=== PATIENT | male | born 1960 | race Caucasian/White ===

== ENCOUNTER 2021-01-27 19:52 | Emergency (ER) | payer OTHER ==
[~2021-01-27] VITALS: Ht 176.5 cm; Wt 91.4 kg
[2021-01-27 21:07] LABS: MICROSCOPIC NOT IND
[2021-01-27 21:12] LABS: ANION GAP 5 mmol/L (5-15); CALCIUM 8.7 mg/dL (8.5-10.1); CHLORIDE 103 mmol/L (98-107); CREATININE 0.91 mg/dL (0.7-1.3)
[2021-01-27 21:15] LABS: BASOPHILS % (AUTO) 0 % (0-1); EOSINOPHILS % (AUTO) 0 % (1-7); LYMPHOCYTES % (AUTO) 10 % (22-44); MEAN CORPUSCULAR HEMOGLOBIN 33.4 pg (27.5-34.5); MEAN CORPUSCULAR HGB CONC 34.5 g/dL (33.2-36.2); MEAN PLATELET VOLUME 8.9 fL (7.4-10.4); MONOCYTES % (AUTO) 7 % (2-9); NEUTROPHILS % (AUTO) 82 % (42-75); PLATELET COUNT 236 x10^3/uL (130-400); RED BLOOD COUNT 4.49 x10^6/uL (4.38-5.82); RED CELL DISTRIBUTION WIDTH 12.9 % (9.4-14.8)
[2021-01-27] MEDS ORDERED: DIAZEPAM 5 MG TABLET PO ONE (21:30)
[2021-01-27] MEDS ORDERED: HYDROmorphone 2 MG/ML, 1ML IM ONE (21:30)
[2021-01-27] MEDS ORDERED: KETOROLAC 30 MG/1 ML IM ONE (21:30)
[2021-01-27] MEDS ORDERED: KETOROLAC 30 MG/1 ML ONE (22:02)
[2021-01-27] MEDS ORDERED: DIAZEPAM 5 MG TABLET ONE (22:02)
[2021-01-27] MEDS ORDERED: HYDROmorphone 1 MG/ML, 1ML INJ ONE (22:03)
[2021-01-27 23:28] VITALS: BP 141/81
== END 2021-01-27 23:29 | disposition home or self-care (01) ==
LOC: ED 22:06
DX: S39.012A Strain of muscle, fascia and tendon of lower back, initial encounter (principal); E10.65 Type 1 diabetes mellitus with hyperglycemia; I25.10 Atherosclerotic heart disease of native coronary artery without angina pectoris; Z95.1 Presence of aortocoronary bypass graft; X58.XXXA Exposure to other specified factors, initial encounter; Y93.89 Activity, other specified; Y92.89 Other specified places as the place of occurrence of the external cause; Y99.8 Other external cause status
CPT/HCPCS: 36415; 72110; 80048; 81003; 85025; 96372; 99284; J1170; J1885